=== PATIENT | female | born 1945 | race Caucasian/White ===

== ENCOUNTER → 2019-07-22 | Day surgery (SDC) | payer MEDICARE, MEDICAID ==
[~2019-07-22] MED LIST: AMLO10TA80 PO; ASPI-1497 PO; ATOR20TA65 PO; GLIM1TAB PO; HYDR12.54 PO; INSU300I SQ; LEVO50TA8 PO; LIDOCAINE HCL 1% 20ML VIAL (Pyxis) INJ ONE; LINA5TAB PO; LOSA25TA26 PO; SODIUM BICARBONATE 4% (2.4MEQ) 5ML VIAL IV ONE
== END | disposition home or self-care (01) ==
LOC: RADANGIO 10:58
PROVIDERS: ATTEND Podiatrist Foot & Ankle Surgery
DX: M86.8X7 Other osteomyelitis, ankle and foot (principal); Z79.82 Long term (current) use of aspirin; Z79.899 Other long term (current) drug therapy; Z82.49 Family history of ischemic heart disease and other diseases of the circulatory system; Z83.3 Family history of diabetes mellitus
CPT/HCPCS: 36573; C1725; J3490; 76937

== ENCOUNTER 2021-09-18 17:33 | Inpatient (IN) | payer MEDICARE, MEDICAID ==
[~2021-09-18] VITALS: Ht 160 cm; Wt 62.1 kg
[~2021-09-18 17:33] MED LIST changes: +LEVO250T43 MT; -LIDOCAINE HCL 1% 20ML VIAL (Pyxis) INJ ONE; -SODIUM BICARBONATE 4% (2.4MEQ) 5ML VIAL IV ONE
[2021-09-18 21:44] LABS: BASOPHILS % 0.6 % (0.0-2.0); EOSINOPHILS % 1.3 % (0.0-5.0); HEMATOCRIT. 27.8 % (36.0-48.0); HEMOGLOBIN. 9.3 g/dL (12.0-16.0); LYMPHOCYTES % 17.4 % (20.0-50.0); MEAN CORPUSCULAR HEMOGLOBIN 30.1 pg (28.0-32.0); MEAN CORPUSCULAR VOLUME 90.5 fL (81.0-99.0); MEAN PLATELET VOLUME 8.6 fl (7.4-10.4); MONOCYTES % 6.7 % (2.0-8.0); PLATELET 226 x1000/uL (130-400); RED BLOOD CELL COUNT 3.07 mill/uL (4.2-5.4); RED CELL DISTRIBUTION WIDTH 14.9 % (11.6-14.6)
[2021-09-18 21:50] LABS: CHLORIDE 114 mEq/L (98-107)
[2021-09-19] VITALS (7 sets, daily range): BP systolic 115–160; BP diastolic 42–65
[2021-09-19] MEDS ORDERED: DEXTROSE 50% WATER 50ML SYRINGE IV PRN (10:00)
[2021-09-19] MEDS ORDERED: CLONIDINE 0.1MG TABLET PO PRN (11:15)
[2021-09-19] MEDS ORDERED: ZOLPIDEM TARTRATE 5MG TABLET PO PRN (11:15)
[2021-09-19] MEDS ORDERED: MAGNESIUM/ALUMINUM HYDROXIDE/SIMETHICONE 30ML UDC PO PRN (11:15)
[2021-09-19] MEDS ORDERED: DIPHENHYDRAMINE 50MG/ML VIAL IV PRN (11:15)
[2021-09-19] MEDS ORDERED: ACETAMINOPHEN 325MG TABLET PO PRN ×2 (11:15)
[2021-09-19] MEDS ORDERED: ONDANSETRON HCL 4MG/2ML INJ IV PRN (11:15)
[2021-09-19] MEDS ORDERED: SODIUM POLYSTYRENE SULFONATE 15 G/60 ML BOT PO NR (11:30)
[2021-09-19] MEDS: BLOOD SUGAR DIAGNOSTIC STRIP TEST SCH ×3 (12:10→21:36)
[2021-09-19 12:37] LABS: CREATINE KINASE 203 IU/L (26-192)
[2021-09-19] MEDS: SODIUM CHLORIDE 0.9% INJ 3ML FLUSH IVF SCH ×2 (14:00→21:36)
[2021-09-19] MEDS: INSULIN LISPRO 100 UNITS/ML SUBCUT SCH ×3 (15:10→21:00)
[2021-09-19] MEDS: SODIUM CHLORIDE 0.45% 1,000 ML IV SCH (15:11)
[2021-09-20 04:00] VITALS: BP_SYST 143; BP_SYST 152; BP_DIAS 44; BP_DIAS 58
[2021-09-20] MEDS: SODIUM CHLORIDE 0.9% INJ 3ML FLUSH IVF SCH ×2 (05:17→13:44)
[2021-09-20] MEDS: BLOOD SUGAR DIAGNOSTIC STRIP TEST SCH ×2 (05:17→12:44)
[2021-09-20] MEDS: SODIUM CHLORIDE 0.45% 1,000 ML IV SCH (05:23)
[2021-09-20] MEDS: INSULIN LISPRO 100 UNITS/ML SUBCUT SCH ×2 (05:24→12:40)
[2021-09-20 08:00] VITALS: BP 150/55
[2021-09-20 12:00] VITALS: BP 133/42
[2021-09-20 15:38] VITALS: BP 133/42
== END 2021-09-20 16:10 | disposition home or self-care (01) | DRG 641 ==
LOC: ER 17:33 → 8WST 09-19 01:55 → EDBEDREQ 09-19 02:02 → ENRESERV 09-19 03:20 → ER 09-19 05:11
PROVIDERS: ADMIT Internal Medicine; ATTEND Internal Medicine
DX: E87.5 Hyperkalemia (principal); N17.9 Acute kidney failure, unspecified; N18.4 Chronic kidney disease, stage 4 (severe); I12.9 Hypertensive chronic kidney disease with stage 1 through stage 4 chronic kidney disease, or unspecified chronic kidney disease; E11.22 Type 2 diabetes mellitus with diabetic chronic kidney disease; E03.9 Hypothyroidism, unspecified; E78.00 Pure hypercholesterolemia, unspecified; E78.5 Hyperlipidemia, unspecified; I25.10 Atherosclerotic heart disease of native coronary artery without angina pectoris; I65.22 Occlusion and stenosis of left carotid artery; Z79.82 Long term (current) use of aspirin; Z79.4 Long term (current) use of insulin; Z90.49 Acquired absence of other specified parts of digestive tract
CPT/HCPCS: 36415; 76770; 80048; 80053; 82550; 82962; 83036; 85025; 93005; 99285; J1815

== ENCOUNTER 2024-01-30 11:08 | Inpatient (IN) | payer MEDICARE, MEDICAID ==
[2024-01-30] VITALS (16 sets, daily range): BP systolic 105–147; BP diastolic 10–107; PULSE 59–71; RESP 14–20; TEMP 36.418–36.44736; O2SAT 98–100
[~2024-01-30] VITALS: Ht 157.5 cm; Wt 30823.5 kg
[~2024-01-30 11:08] MED LIST changes: -GLIM1TAB PO; +GLIM1TAB55 PO; -LEVO250T43 MT; +LEVO250T74 MT
[2024-01-30 12:48] LABS: HEMATOCRIT. 23.6 % (36.0-48.0); MEAN CORPUSCULAR HEMOGLOBIN 31.6 pg (28.0-32.0); MEAN CORPUSCULAR HGB CONC 33.7 g/dL (31.0-37.0); MEAN CORPUSCULAR VOLUME 93.8 fL (81.0-99.0); MEAN PLATELET VOLUME 9.6 fl (7.4-10.4); PLATELET 200 x1000/uL (130-400); RED BLOOD CELL COUNT 2.52 mill/uL (4.2-5.4); RED CELL DISTRIBUTION WIDTH 15.1 % (11.6-14.6); WHITE BLOOD COUNT 8.5 x1000/uL (4.5-11.0)
[2024-01-30 12:51] LABS: DIFFERENTIAL COMMENT 1
[2024-01-30 12:55] LABS: CHLORIDE 100 mEq/L (98-107); SODIUM 127 mEq/L (136-145)
[2024-01-30 13:01] LABS: D-DIMER 5.83 mg/L FEU (<0.50); GLUCOSE 93 mg/dL (70-105); INR 1.2; PROTHROMBIN TIME 12.9 sec (9.6-11.0)
[2024-01-30 13:04] LABS: POTASSIUM 7.1 mEq/L (3.5-5.1)
[2024-01-30 13:05] LABS: CALCIUM 5.5 mg/dL (8.7-10.4); CARBON DIOXIDE < 10 mEq/L (21-32)
[2024-01-30 13:07] LABS: CREATININE 15.4 mg/dL (0.6-1.0); UREA NITROGEN BLOOD 147 mg/dL (9-23)
[2024-01-30 13:08] LABS: TROPONIN I HIGH SENSITIVITY 299 ng/L (3.0-34)
[2024-01-30] MEDS ORDERED: FUROSEMIDE 100MG/10ML VIAL IV ONE (13:15)
[2024-01-30] MEDS: DEXTROSE 50% WATER 50ML SYRINGE IV ONE (13:48)
[2024-01-30] MEDS: INSULIN REGULAR (HUMULIN R) 1000UNITS/10ML VIAL IV ONE (13:48)
[2024-01-30] MEDS: FUROSEMIDE 40MG/4ML VIAL IV NR (13:49)
[2024-01-30] MEDS: CALCIUM CHLORIDE 1,000 MG in DEXT 5% WATER 100 ML IV ONE (13:53)
[2024-01-30] MEDS ORDERED: LIDOCAINE HCL 1% 10 MG/ML 10ML VIAL ONE (14:14)
[2024-01-30] MEDS ORDERED: HEPARIN 1000 UNITS/ML 10ML ONE ×2 (14:15→14:17)
[2024-01-30 14:36] LABS: BG BASE EXCESS -23.2 mmol/L (-2.0-3.0); BG CARBOXYHEMOGLOBIN 0.3 % (0.5-1.5); BG DEOXYHEMOGLOBIN 1.6 % (0.0-5.0); BG FRACTION INSPIRED OXYGEN 36; BG METHEMOGLOBIN 0.3 % (0.5-1.5); BG OXYGEN SATURATION 98.4 % (94.0-98.0); BG OXYHEMOGLOBIN 97.8 % (94.0-98.0); BG PCO2 17.6 mmHg (32.0-45.0); BG PH 7.068 (7.350-7.450); BG PO2 151.4 mmHg (83.0-108.0); BG SAMPLE SITE RIGHT BRACHIAL; BG TOTAL HEMOGLOBIN 7.5 g/dL (12.0-16.0); BG VENT MODE NASAL CANNULA
[2024-01-30 15:01] LABS: ANISOCYTOSIS 1+; NUCLEATED RED BLOOD CELLS 4 /100 WBC; PLATELET ESTIMATE NORMAL
[2024-01-30 15:03] LABS: HEPATITIS B SURFACE ANTIGEN NEGATIVE (Negative)
[2024-01-30] MEDS: ALBUTEROL (0.083%) 2.5MG/3ML NEB HHN SCH (15:11)
[2024-01-30 15:23] LABS: HEPATITIS A AB IGM NEGATIVE (Negative)
[2024-01-30 15:24] LABS: HEPATITIS B CORE AB IGM NEGATIVE (Negative)
[2024-01-30 15:25] LABS: HEPATITIS C AB NON REACTIVE (Neg) (Negative)
[2024-01-30 16:28] LABS: TROPONIN I HIGH SENSITIVITY 264 ng/L (3.0-34)
[2024-01-30] MEDS ORDERED: MAGNESIUM/ALUMINUM HYDROXIDE/SIMETHICONE 30ML UDC PO PRN (17:00)
[2024-01-30] MEDS ORDERED: ACETAMINOPHEN 325MG TABLET PO PRN (17:00)
[2024-01-30] MEDS ORDERED: IPRATROPIUM/ALBUTEROL 0.5-3(2.5)MG/3ML NEB HHN PRN (17:00)
[2024-01-30] MEDS: BLOOD SUGAR DIAGNOSTIC STRIP TEST SCH (17:32)
[2024-01-30] MEDS: DEXTROSE 50% WATER 50ML SYRINGE IV PRN (17:44)
[2024-01-30 17:55] LABS: CREATINE KINASE 3772 IU/L (34-145)
[2024-01-30] MEDS: SODIUM BICARBONATE 100 MEQ in DEXTROSE 5% WATER 900 ML IV SCH (18:00)
[2024-01-30] MEDS: INSULIN LISPRO 100 UNITS/ML SUBCUT SCH (18:20)
[2024-01-30] MEDS: SODIUM CHLORIDE 0.9% 3ML FLUSH IVF SCH (21:47)
[2024-01-31] VITALS (82 sets, daily range): BP systolic 86–202; BP diastolic 43–162; PULSE 60–110; RESP 10–24; TEMP 36.6696–37.2252; O2SAT 94–100
[2024-01-31] MEDS: CLONIDINE 0.1MG TABLET PO PRN (01:55)
[2024-01-31 05:40] LABS: CLARITY URINE TURBID (CLEAR); COLOR URINE YELLOW (YELLOW); GLUCOSE URINE TRACE (NEGATIVE); KETONES URINE NEGATIVE (NEGATIVE); LEUKOCYTE ESTERASE URINE 2+ (NEGATIVE); NITRITE URINE NEGATIVE (NEGATIVE); OCCULT BLOOD URINE 2+ (NEGATIVE); PH URINE 6.5 (4.5-8.0); PROTEIN URINE 4+ (NEGATIVE); SPECIFIC GRAVITY URINE 1.013 (1.005-1.030); UROBILINOGEN URINE 0.2 E.U./dL (0.2-1.0)
[2024-01-31 07:22] LABS: BACTERIA URINE TRACE; SQUAMOUS EPITHELIAL CELL URINE 1+ /lpf (RARE/1+)
[2024-01-31 07:27] LABS: HEMATOCRIT. 21.3 % (36.0-48.0); HEMOGLOBIN. 7.3 g/dL (12.0-16.0); MEAN CORPUSCULAR HEMOGLOBIN 30.7 pg (28.0-32.0); MEAN CORPUSCULAR HGB CONC 34.1 g/dL (31.0-37.0); MEAN PLATELET VOLUME 9.4 fl (7.4-10.4); PLATELET 178 x1000/uL (130-400); RED BLOOD CELL COUNT 2.36 mill/uL (4.2-5.4); RED CELL DISTRIBUTION WIDTH 14.4 % (11.6-14.6)
[2024-01-31 07:31] LABS: DIFFERENTIAL COMMENT 1
[2024-01-31 07:37] LABS: CALCIUM 7.2 mg/dL (8.7-10.4)
[2024-01-31 07:45] LABS: PHOSPHORUS 7.1 mg/dL (2.5-4.9)
[2024-01-31 07:46] LABS: THYROID STIMULATING HORMONE 11.18 uIU/mL (0.55-4.78)
[2024-01-31] MEDS: LEVOTHYROXINE SODIUM 50MCG TABLET PO SCH (08:00)
[2024-01-31] MEDS: HYDRALAZINE HCL 25MG TABLET PO SCH (08:00)
[2024-01-31 08:21] LABS: CREATININE 7.8 mg/dL (0.6-1.0); POTASSIUM 2.9 mEq/L (3.5-5.1)
[2024-01-31] MEDS: AMLODIPINE 10MG TABLET PO SCH (09:00)
[2024-01-31] MEDS: FAMOTIDINE 20MG/2ML VIAL IV SCH (09:19)
[2024-01-31] MEDS: HYDRALAZINE 20MG/ML VIAL IV PRN (10:31)
[2024-01-31] MEDS: ONDANSETRON HCL 4MG/2ML INJ IV PRN (12:51)
[2024-01-31] MEDS ORDERED: POTASSIUM CHLORIDE 20MEQ/PACKET PO NR (13:00)
[2024-01-31] MEDS: CALCIUM ACETATE 667MG CAPSULE PO SCH (14:30)
[2024-01-31] MEDS: KCL 20MEQ/100ML PREMIX 100 ML IV SCH (14:47)
[2024-01-31] MEDS: EPOETIN ALFA-EPBX 4,000 UNIT/ML VIAL SUBCUT SCH (21:10)
[2024-01-31] MEDS: DIPHENHYDRAMINE 50MG/ML VIAL IV PRN (21:11)
[2024-01-31 22:02] LABS: POTASSIUM 4.4 mEq/L (3.5-5.1)
[2024-02-01] VITALS (65 sets, daily range): BP systolic 93–172; BP diastolic 40–107; PULSE 57–81; RESP 12–33; TEMP 36.3918–37.28076; O2SAT 61–100
[2024-02-01 05:01] LABS: PLATELET ESTIMATE NORMAL
[2024-02-01 06:12] LABS: BASOPHILS % 0.5 % (0.0-2.0); EOSINOPHILS % 0.7 % (0.0-5.0); MEAN CORPUSCULAR HEMOGLOBIN 31.9 pg (28.0-32.0); MEAN CORPUSCULAR HGB CONC 35.2 g/dL (31.0-37.0); MEAN CORPUSCULAR VOLUME 90.8 fL (81.0-99.0); MEAN PLATELET VOLUME 9.6 fl (7.4-10.4); MONOCYTES % 13.5 % (2.0-8.0); NEUTROPHILS % 69.3 % (40.0-76.0); PLATELET 134 x1000/uL (130-400); RED BLOOD CELL COUNT 1.86 mill/uL (4.2-5.4); RED CELL DISTRIBUTION WIDTH 14.2 % (11.6-14.6); WHITE BLOOD COUNT 6.8 x1000/uL (4.5-11.0)
[2024-02-01 06:20] LABS: POTASSIUM 3.9 mEq/L (3.5-5.1)
[2024-02-01 06:48] LABS: DIFFERENTIAL COMMENT 1; HEMATOCRIT. 16.9 % (36.0-48.0)
[2024-02-01 06:55] LABS: CREATININE 9.2 mg/dL (0.6-1.0)
[2024-02-01] MEDS: LEVOTHYROXINE SODIUM 100MCG TABLET PO SCH (09:47)
[2024-02-01] MEDS: ACETAMINOPHEN 325MG TABLET PO PRN (13:21)
[2024-02-01 22:43] LABS: HEMATOCRIT 24.8 % (36.0-48.0); HEMOGLOBIN 8.3 g/dL (12.0-16.0)
[2024-02-02] VITALS (7 sets, daily range): BP systolic 126–190; BP diastolic 41–83; PULSE 61–81; RESP 18–22; TEMP 36.05844–36.61404; O2SAT 96–98
[2024-02-02 08:42] LABS: POTASSIUM 3.7 mEq/L (3.5-5.1)
[2024-02-02 09:07] LABS: CREATININE 7.2 mg/dL (0.6-1.0)
[2024-02-03] VITALS: BP 154/54; PULSE 64; RESP 20; TEMP 36.28068; O2SAT 97
[2024-02-03 04:00] VITALS: BP 126/41; PULSE 66; RESP 18; TEMP 36.114; O2SAT 97
[2024-02-03 07:24] LABS: POTASSIUM 3.5 mEq/L (3.5-5.1)
[2024-02-03 07:34] LABS: BASOPHILS % 0.6 % (0.0-2.0); EOSINOPHILS % 2.3 % (0.0-5.0); HEMATOCRIT. 24.9 % (36.0-48.0); HEMOGLOBIN. 8.5 g/dL (12.0-16.0); LYMPHOCYTES % 8.3 % (20.0-50.0); MEAN CORPUSCULAR HEMOGLOBIN 30.5 pg (28.0-32.0); MEAN CORPUSCULAR VOLUME 89.8 fL (81.0-99.0); MEAN PLATELET VOLUME 9.6 fl (7.4-10.4); MONOCYTES % 9.6 % (2.0-8.0); NEUTROPHILS % 79.2 % (40.0-76.0); PLATELET 163 x1000/uL (130-400); RED BLOOD CELL COUNT 2.77 mill/uL (4.2-5.4); RED CELL DISTRIBUTION WIDTH 16.6 % (11.6-14.6)
[2024-02-03 08:00] VITALS: BP 155/58; PULSE 66; RESP 18; TEMP 36.3918; O2SAT 95
[2024-02-03 08:11] LABS: CREATININE 7.9 mg/dL (0.6-1.0)
[2024-02-03 08:15] LABS: CALCIUM 5.7 mg/dL (8.7-10.4)
[2024-02-03 12:00] VITALS: BP 159/61; PULSE 81; RESP 18; TEMP 36.61404; O2SAT 100
[2024-02-03] MEDS ORDERED: CALCIUM GLUCONATE 1,000 MG in DEXT 5% WATER 90 ML IV ONE (12:45)
[2024-02-03] MEDS: CALCIUM GLUCONATE 1GM PREMIX 50ML IV SCH (14:46)
[2024-02-03 16:00] VITALS: BP 147/55; PULSE 65; RESP 18; TEMP 36.72516; O2SAT 95
[2024-02-03 20:00] VITALS: BP 132/48; PULSE 75; RESP 18; TEMP 36.50292; O2SAT 98
[2024-02-04] VITALS (18 sets, daily range): BP systolic 121–165; BP diastolic 39–80; PULSE 65–70; RESP 14–20; TEMP 36.114–36.89184; O2SAT 89–100
[2024-02-04] MEDS ORDERED: LIDOCAINE HCL 1% 10 MG/ML 10ML VIAL ONE (07:57)
[2024-02-04] MEDS: CEFAZOLIN 1000MG PREMIX 50 ML IV NR (08:45)
[2024-02-05] VITALS: BP 134/51; PULSE 73; TEMP 36.78072; O2SAT 99
[2024-02-05 04:00] VITALS: BP 137/46; PULSE 63; RESP 18; TEMP 36.78072; O2SAT 97
[2024-02-05 12:00] VITALS: BP 127/81; PULSE 72; RESP 18; TEMP 35.89176; O2SAT 97
[2024-02-05 16:00] VITALS: BP 145/73; PULSE 73; RESP 18; TEMP 36.3918; O2SAT 98
[2024-02-05 20:00] VITALS: BP 175/66; PULSE 76; RESP 19; TEMP 36.28068; O2SAT 98
[2024-02-06] VITALS (14 sets, daily range): BP systolic 127–183; BP diastolic 53–88; PULSE 69–79; RESP 16–20; TEMP 36.16956–36.78072; O2SAT 94–99
[2024-02-07] VITALS: BP 139/42; PULSE 70; RESP 19; TEMP 36.22512; O2SAT 98
[2024-02-07 04:00] VITALS: BP 151/49; PULSE 76; RESP 20; TEMP 36.6696; O2SAT 97
[2024-02-07 08:00] VITALS: BP 156/50; PULSE 82; RESP 18; TEMP 36.61404; O2SAT 98
[2024-02-07 12:00] VITALS: BP 175/60; PULSE 75; RESP 18; TEMP 36.55848; O2SAT 98
[2024-02-07 12:11] LABS: BASOPHILS % 0.6 % (0.0-2.0); EOSINOPHILS % 2.1 % (0.0-5.0); HEMATOCRIT. 31.4 % (36.0-48.0); HEMOGLOBIN. 10.2 g/dL (12.0-16.0); LYMPHOCYTES % 10.5 % (20.0-50.0); MEAN CORPUSCULAR HEMOGLOBIN 29.8 pg (28.0-32.0); MEAN CORPUSCULAR HGB CONC 32.4 g/dL (31.0-37.0); MEAN CORPUSCULAR VOLUME 91.8 fL (81.0-99.0); MEAN PLATELET VOLUME 8.7 fl (7.4-10.4); MONOCYTES % 10.8 % (2.0-8.0); PLATELET 174 x1000/uL (130-400); RED BLOOD CELL COUNT 3.42 mill/uL (4.2-5.4); RED CELL DISTRIBUTION WIDTH 16.3 % (11.6-14.6); WHITE BLOOD COUNT 9.4 x1000/uL (4.5-11.0)
[2024-02-07 12:15] LABS: POTASSIUM 3.3 mEq/L (3.5-5.1)
[2024-02-07 12:17] LABS: CALCIUM 6.5 mg/dL (8.7-10.4)
[2024-02-07 12:45] LABS: CREATININE 6.2 mg/dL (0.6-1.0)
[2024-02-07 15:46] VITALS: BP 110/78; PULSE 78; TEMP 98.6; O2SAT 99
[2024-02-07 16:00] VITALS: BP 128/89; PULSE 78; RESP 18; TEMP 37.00296; O2SAT 98
== END 2024-02-07 18:25 | disposition home or self-care (01) | DRG 674 ==
LOC: ER 11:26 → EDBEDREQTM 14:03 → EDBEDREQ 14:03 → EDBEDREQSVC 14:03 → EDBEDREQ 15:29 → CVICU 20:01 → 7WST 02-01 23:43
PROVIDERS: ADMIT Internal Medicine; ATTEND Internal Medicine
PROC: B5181ZA Fluoroscopy of Superior Vena Cava using Low Osmolar Contrast, Guidance (ICD-10-PCS; 2024-01-31)
PROC: 5A1D70Z Performance of Urinary Filtration, Intermittent, Less than 6 Hours Per Day (ICD-10-PCS; 2024-01-31)
PROC: 02HV33Z Insertion of Infusion Device into Superior Vena Cava, Percutaneous Approach (ICD-10-PCS; 2024-01-31)
PROC: B548ZZA Ultrasonography of Superior Vena Cava, Guidance (ICD-10-PCS; 2024-01-31)
PROC: 5A1D70Z Performance of Urinary Filtration, Intermittent, Less than 6 Hours Per Day (ICD-10-PCS; 2024-02-01)
PROC: 30233N1 Transfusion of Nonautologous Red Blood Cells into Peripheral Vein, Percutaneous Approach (ICD-10-PCS; 2024-02-01)
PROC: 0JH63XZ Insertion of Tunneled Vascular Access Device into Chest Subcutaneous Tissue and Fascia, Percutaneous Approach (ICD-10-PCS; principal; 2024-02-04)
PROC: 02HV33Z Insertion of Infusion Device into Superior Vena Cava, Percutaneous Approach (ICD-10-PCS; 2024-02-04)
PROC: B5181ZA Fluoroscopy of Superior Vena Cava using Low Osmolar Contrast, Guidance (ICD-10-PCS; 2024-02-04)
PROC: 5A1D70Z Performance of Urinary Filtration, Intermittent, Less than 6 Hours Per Day (ICD-10-PCS; 2024-02-04)
PROC: B548ZZA Ultrasonography of Superior Vena Cava, Guidance (ICD-10-PCS; 2024-02-04)
PROC: 5A1D70Z Performance of Urinary Filtration, Intermittent, Less than 6 Hours Per Day (ICD-10-PCS; 2024-02-06)
DX: N17.9 Acute kidney failure, unspecified (principal); E87.4 Mixed disorder of acid-base balance; M62.82 Rhabdomyolysis; I12.0 Hypertensive chronic kidney disease with stage 5 chronic kidney disease or end stage renal disease; E87.5 Hyperkalemia; N18.6 End stage renal disease; Z20.822 Contact with and (suspected) exposure to COVID-19; E87.70 Fluid overload, unspecified; D63.1 Anemia in chronic kidney disease; E03.9 Hypothyroidism, unspecified; E11.22 Type 2 diabetes mellitus with diabetic chronic kidney disease; E78.00 Pure hypercholesterolemia, unspecified; E83.51 Hypocalcemia; I65.22 Occlusion and stenosis of left carotid artery; R79.89 Other specified abnormal findings of blood chemistry; D64.9 Anemia, unspecified; Z90.49 Acquired absence of other specified parts of digestive tract
CPT/HCPCS: 36415; 36556; 36558; 36600; 71045; 76770; 76937; 77001; 80048; 81003; 82375; 82550; 82805; 82962; 83036; 83880; 84100; 84132; 84443; 84484; 85014; 85018; 85025; 85379; 86705; 86706; 86709; 86850; 86900; 86920; 87340; 87426; 90935; 92610; 93005; 93970; 94640; 97116; 97162; 97166; 99291; C1750; C1752; C1769; J0360; J0610; J0690; J0885; J1200; J1642; J1644; J1815; J1940; J2405; J3480; J3490; J7060; J7070; P9016

== ENCOUNTER → 2024-05-21 | Day surgery (SDC) | payer MEDICARE, MEDICAID ==
[~2024-05-21] VITALS: Ht 152.4 cm; Wt 54.4 kg
[~2024-05-21] MED LIST changes: +BACITRACIN 14GM TUBE TOP ONE; +BUPIVACAINE HCL/PF 0.5% (5MG/ML) 10ML ONE; +CALC667C PO; +CEFAZOLIN SODIUM 1000MG/VIAL ONE; +CHOL400D7 PO; +FOLI-43 PO; +GLYCOPYRROLATE 0.2 MG/ML 2ML VIAL IV PRN; +HEPARIN SODIUM 1,000 UNIT/1ML VIAL IV ONE; +HYDR50TA40 PO; +HYDRALAZINE 20MG/ML VIAL IV PRN; +HYDROMORPHONE HCL/PF 1MG/ML INJ IV PRN; +LABETALOL 5MG/ML 4ML INJ IV PRN; +LIDOCAINE HCL 1% 10 MG/ML 10ML VIAL ONE; +NEBI10TA10 PO; +OMEG100016 PO; +ONDANSETRON HCL 4MG/2ML INJ IV PRN; +POLYMYXIN B SULFATE 500000 UNITS/VIAL ONE; +PROPOFOL 200MG/20ML VIAL IV ONE; +SODIUM CHLORIDE 0.9% 500 ML IV SCH; +THROMBIN (BOVINE) 5000 UNITS/VIAL TOP ONE
[2024-05-21 09:54] LABS: BASOPHILS % 1.1 % (0.0-2.0); EOSINOPHILS % 3.4 % (0.0-5.0); HEMATOCRIT. 36.1 % (36.0-48.0); LYMPHOCYTES % 27.8 % (20.0-50.0); MEAN CORPUSCULAR HEMOGLOBIN 31.5 pg (28.0-32.0); MEAN CORPUSCULAR HGB CONC 33.1 g/dL (31.0-37.0); MEAN CORPUSCULAR VOLUME 95.3 fL (81.0-99.0); MEAN PLATELET VOLUME 8.2 fl (7.4-10.4); NEUTROPHILS % 58.7 % (40.0-76.0); PLATELET 216 x1000/uL (130-400); RED BLOOD CELL COUNT 3.79 mill/uL (4.2-5.4); RED CELL DISTRIBUTION WIDTH 15.8 % (11.6-14.6); WHITE BLOOD COUNT 6.6 x1000/uL (4.5-11.0)
[2024-05-21 09:58] LABS: CALCIUM 10.3 mg/dL (8.7-10.4)
[2024-05-21 10:04] LABS: PARTIAL THROMBOPLASTIN TIME 26.3 sec (23.4-31.0); PROTHROMBIN TIME 10.7 sec (9.6-11.0)
[2024-05-21] MEDS: SODIUM CHLORIDE 0.9% 500 ML IV ONE (11:14)
== END | disposition home or self-care (01) ==
LOC: OR 09:05
PROVIDERS: ATTEND Surgery Vascular Surgery
DX: I12.0 Hypertensive chronic kidney disease with stage 5 chronic kidney disease or end stage renal disease (principal); N18.6 End stage renal disease; E11.22 Type 2 diabetes mellitus with diabetic chronic kidney disease; E78.00 Pure hypercholesterolemia, unspecified; Z99.2 Dependence on renal dialysis; Z79.82 Long term (current) use of aspirin; Z79.4 Long term (current) use of insulin; Z79.899 Other long term (current) drug therapy; Z98.890 Other specified postprocedural states
CPT/HCPCS: 36821; 80048; 82962; 85025; 85610; 85730; 36415; 93005; J0665; J0690; J1644; J2003; J3490 ×2; J2704

== ENCOUNTER → 2024-07-16 | Day surgery (SDC) | payer MEDICARE, MEDICAID ==
[~2024-07-16] VITALS: Ht 152.4 cm; Wt 54.4 kg
[~2024-07-16] MED LIST changes: -CEFAZOLIN SODIUM 1000MG/VIAL ONE; +CHOL200026 PO; -CHOL400D7 PO; +ETOMIDATE 2MG/ML 10ML VIAL IV ONE; +FENTANYL CITRATE/PF 50MCG/ML 2ML VIAL ONE; -GLYCOPYRROLATE 0.2 MG/ML 2ML VIAL IV PRN; -HYDR12.54 PO; -HYDRALAZINE 20MG/ML VIAL IV PRN; -HYDROMORPHONE HCL/PF 1MG/ML INJ IV PRN; +LEVO100T9 PO; -LEVO250T74 MT; -LEVO50TA8 PO; -LINA5TAB PO; -LOSA25TA26 PO; +MEPERIDINE HCL/PF 25MG/ML CPJ IV PRN; +MIDAZOLAM HCL 2 MG/2 ML VIAL ONE; +NALOXONE HCL 0.4MG/ML 1ML VIAL ONE; -ONDANSETRON HCL 4MG/2ML INJ IV PRN; +ROPIVACAINE HCL 1% 20 ML VIAL EPI ONE; -SODIUM CHLORIDE 0.9% 500 ML IV SCH
[2024-07-16 09:45] LABS: BASOPHILS % 1.1 % (0.0-2.0); EOSINOPHILS % 3.4 % (0.0-5.0); HEMATOCRIT. 32.3 % (36.0-48.0); HEMOGLOBIN. 10.6 g/dL (12.0-16.0); LYMPHOCYTES % 25.8 % (20.0-50.0); MEAN CORPUSCULAR HEMOGLOBIN 31.8 pg (28.0-32.0); MEAN CORPUSCULAR HGB CONC 32.9 g/dL (31.0-37.0); MEAN CORPUSCULAR VOLUME 96.7 fL (81.0-99.0); MEAN PLATELET VOLUME 8.8 fl (7.4-10.4); MONOCYTES % 10.3 % (2.0-8.0); NEUTROPHILS % 59.4 % (40.0-76.0); PLATELET 198 x1000/uL (130-400); RED BLOOD CELL COUNT 3.34 mill/uL (4.2-5.4); RED CELL DISTRIBUTION WIDTH 15.1 % (11.6-14.6); WHITE BLOOD COUNT 5.3 x1000/uL (4.5-11.0)
[2024-07-16 09:54] LABS: PARTIAL THROMBOPLASTIN TIME 24.1 sec (23.4-31.0); PROTHROMBIN TIME 10.6 sec (9.6-11.0)
[2024-07-16 09:55] LABS: POTASSIUM 4.6 mEq/L (3.5-5.1)
[2024-07-16 09:56] LABS: CALCIUM 8.7 mg/dL (8.7-10.4)
[2024-07-16 10:01] LABS: CREATININE 4.4 mg/dL (0.6-1.0)
[2024-07-16] MEDS: SODIUM CHLORIDE 0.9% 500 ML IV ONE (10:13)
[2024-07-16] MEDS: HYDRALAZINE 20MG/ML VIAL IV NR (13:18)
[2024-07-16] MEDS: HYDROMORPHONE HCL/PF 1MG/ML INJ IV PRN (13:27)
[2024-07-16 13:56] VITALS: BP 111/50; PULSE 75; RESP 15
[2024-07-16] MEDS: ONDANSETRON HCL 4MG/2ML INJ IV PRN (14:39)
[2024-07-16] MEDS: DEXAMETHASONE 4MG/ML 1ML VIAL IV NR (16:32)
[2024-07-16] MEDS: METOCLOPRAMIDE HCL 10MG/2ML VIAL IV NR (16:32)
== END | disposition home or self-care (01) ==
LOC: OR 09:13
PROVIDERS: ATTEND Surgery Vascular Surgery
DX: I77.0 Arteriovenous fistula, acquired (principal); I12.0 Hypertensive chronic kidney disease with stage 5 chronic kidney disease or end stage renal disease; N18.6 End stage renal disease; E11.22 Type 2 diabetes mellitus with diabetic chronic kidney disease; E78.5 Hyperlipidemia, unspecified; Z79.82 Long term (current) use of aspirin; Z79.84 Long term (current) use of oral hypoglycemic drugs; Z79.899 Other long term (current) drug therapy; Z98.890 Other specified postprocedural states; Z82.49 Family history of ischemic heart disease and other diseases of the circulatory system; Z83.3 Family history of diabetes mellitus
CPT/HCPCS: 36830; 80048; 82962; 85025; 85610; 85730; 36415; 93005; C1768; J3010; J0665; J1100; J3490 ×3; J1644; J0360; J2003; J2765; J2250; J2310; J2405; J2704; J2795; J1171

== ENCOUNTER 2024-11-28 11:23 | Inpatient (IN) | payer MEDICARE, MEDICAID ==
[2024-11-25] MEDS: INSULIN LISPRO 100 UNITS/ML SUBCUT SCH (21:00)
[2024-11-25] MEDS: BLOOD SUGAR DIAGNOSTIC STRIP TEST SCH (21:00)
[~2024-11-28] VITALS: Ht 152.4 cm; Wt 60.3 kg
[~2024-11-28 11:23] MED LIST changes: -BACITRACIN 14GM TUBE TOP ONE; -BUPIVACAINE HCL/PF 0.5% (5MG/ML) 10ML ONE; -ETOMIDATE 2MG/ML 10ML VIAL IV ONE; -FENTANYL CITRATE/PF 50MCG/ML 2ML VIAL ONE; -HEPARIN SODIUM 1,000 UNIT/1ML VIAL IV ONE; -LABETALOL 5MG/ML 4ML INJ IV PRN; -LIDOCAINE HCL 1% 10 MG/ML 10ML VIAL ONE; -MEPERIDINE HCL/PF 25MG/ML CPJ IV PRN; -MIDAZOLAM HCL 2 MG/2 ML VIAL ONE; -NALOXONE HCL 0.4MG/ML 1ML VIAL ONE; -POLYMYXIN B SULFATE 500000 UNITS/VIAL ONE; -PROPOFOL 200MG/20ML VIAL IV ONE; -ROPIVACAINE HCL 1% 20 ML VIAL EPI ONE; -THROMBIN (BOVINE) 5000 UNITS/VIAL TOP ONE
[2024-11-28 12:16] LABS: HEMATOCRIT. 44.0 % (36.0-48.0); HEMOGLOBIN. 13.9 g/dL (12.0-16.0); MEAN PLATELET VOLUME 9.4 fl (7.4-10.4); PLATELET 90 x1000/uL (130-400); RED BLOOD CELL COUNT 4.01 mill/uL (4.2-5.4); RED CELL DISTRIBUTION WIDTH 20.7 % (11.6-14.6)
[2024-11-28 12:23] LABS: UREA NITROGEN BLOOD 72 mg/dL (9-23)
[2024-11-28 12:25] LABS: ASPARTATE AMINOTRANSFERASE 36 IU/L (<34); BILIRUBIN DIRECT 1.1 mg/dL (<=3.0)
[2024-11-28 12:26] LABS: BILIRUBIN TOTAL 1.9 mg/dL (0.1-1.0); PROTEIN TOTAL 6.6 g/dL (6.0-8.3)
[2024-11-28 12:35] LABS: CREATININE 9.4 mg/dL (0.6-1.0); PHOSPHORUS 11.1 mg/dL (2.5-4.9)
[2024-11-28] MEDS ORDERED: SODIUM BICARBONATE 8.4% 50MEQ/50ML VIAL IV ONE (12:45)
[2024-11-28] MEDS ORDERED: DEXTROSE 50% WATER 50ML SYRINGE IV ONE (12:45)
[2024-11-28] MEDS ORDERED: ALBUTEROL (0.5%) 2.5MG/0.5ML NEB HHN ONE (12:45)
[2024-11-28] MEDS ORDERED: SODIUM BICARBONATE 8.4% 50MEQ/50ML VIAL IV NR (13:00)
[2024-11-28 13:16] LABS: BAND% 18.0 % (1.0-6.0); LYMPHOCYTES % MANUAL 3.0 % (20.0-60.0); MONOCYTES % MANUAL 2.0 % (2.0-8.0); NEUTROPHILS % MANUAL 77.0 % (45.0-75.0)
[2024-11-28 13:17] LABS: PLATELET ESTIMATE DECREASED
[2024-11-28] MEDS: CALCIUM GLUCONATE 100MG/ML 10ML VIAL IV ONE (13:24)
[2024-11-28] MEDS: SODIUM BICARBONATE 8.4% 50MEQ/50ML SYR IV NR (13:30)
[2024-11-28] MEDS: INSULIN REGULAR (HUMULIN R) 1000UNITS/10ML VIAL IV ONE (13:30)
[2024-11-28] MEDS: DEXTROSE 50% WATER 50ML SYRINGE IV NR (13:30)
[2024-11-28 14:02] VITALS: PULSE 91; RESP 18; O2SAT 100
[2024-11-28] MEDS: ALBUTEROL (0.5%) 2.5MG/0.5ML NEB HHN NR (14:02)
[2024-11-28 14:15] LABS: HEPATITIS A AB IGM NEGATIVE (Negative)
[2024-11-28 14:16] LABS: HEPATITIS B CORE AB IGM NEGATIVE (Negative); HEPATITIS C AB NON REACTIVE (Neg) (Negative)
[2024-11-28 16:00] VITALS: BP 132/74; PULSE 75; RESP 18; TEMP 36.7; O2SAT 98
[2024-11-28] MEDS ORDERED: GUAIFENESIN 200MG/10ML SUGAR FREE UDC PO PRN (16:45)
[2024-11-28] MEDS ORDERED: ACETAMINOPHEN 325MG TABLET PO PRN ×2 (16:45)
[2024-11-28] MEDS ORDERED: DIPHENHYDRAMINE 50MG/ML VIAL IV PRN (16:45)
[2024-11-28] MEDS ORDERED: ZOLPIDEM TARTRATE 5MG TABLET PO PRN (16:45)
[2024-11-28] MEDS ORDERED: ONDANSETRON HCL 4MG/2ML INJ IV PRN (16:45)
[2024-11-28] MEDS ORDERED: CLONIDINE 0.1MG TABLET PO PRN (16:45)
[2024-11-28 17:29] VITALS: BP 136/75; PULSE 80; RESP 18; TEMP 36.696
[2024-11-28] MEDS: CALCIUM ACETATE 667MG CAPSULE PO SCH (19:18)
[2024-11-28 20:00] VITALS: BP 135/77; PULSE 91; RESP 18; TEMP 36.6; O2SAT 96
[2024-11-28] MEDS: AMLODIPINE 5MG TABLET PO SCH (21:00)
[2024-11-28] MEDS: HYDRALAZINE HCL 50MG TABLET PO SCH (21:53)
[2024-11-28] MEDS: ATORVASTATIN CALCIUM 20MG TABLET PO SCH (21:54)
[2024-11-28] MEDS: SODIUM CHLORIDE 0.9% 3ML FLUSH IVF SCH (22:01)
[2024-11-29] VITALS (14 sets, daily range): BP systolic 95–125; BP diastolic 53–82; PULSE 70–118; RESP 18–20; TEMP 36.2–36.9474; O2SAT 96–98
[2024-11-29 06:56] LABS: UREA NITROGEN BLOOD 82.0 mg/dL (9-23)
[2024-11-29 07:06] LABS: CREATININE 9.6 mg/dL (0.6-1.0)
[2024-11-29] MEDS ORDERED: LIDOCAINE HCL 1% 10 MG/ML 10ML VIAL ONE (09:22)
[2024-11-29] MEDS: FOLIC ACID/VITAMIN B COMP W-C TABLET PO SCH (10:01)
[2024-11-29] MEDS: GLIMEPIRIDE 1MG TABLET PO SCH (10:01)
[2024-11-29] MEDS: LEVOTHYROXINE SODIUM 100MCG TABLET PO SCH (10:01)
[2024-11-29 16:37] LABS: INR 1.3
[2024-11-29] MEDS: INSULIN GLARGINE 100 UNITS/ML SUBCUT SCH (21:57)
[2024-11-30 03:59] VITALS: BP 105/64; PULSE 75; RESP 18; TEMP 36.6; O2SAT 96
[2024-11-30 06:25] LABS: UREA NITROGEN BLOOD 49.0 mg/dL (9-23)
[2024-11-30 06:28] LABS: HEMATOCRIT. 37.2 % (36.0-48.0); HEMOGLOBIN. 12.0 g/dL (12.0-16.0); MEAN PLATELET VOLUME 10.6 fl (7.4-10.4); PLATELET 76 x1000/uL (130-400); RED BLOOD CELL COUNT 3.45 mill/uL (4.2-5.4); RED CELL DISTRIBUTION WIDTH 20.3 % (11.6-14.6)
[2024-11-30 06:34] LABS: CREATININE 6.5 mg/dL (0.6-1.0)
[2024-11-30] MEDS: DEXTROSE 50% WATER 50ML SYRINGE IV PRN (06:42)
[2024-11-30 08:00] VITALS: BP 108/63; PULSE 76; RESP 18; TEMP 36.1; O2SAT 97
[2024-11-30 11:03] LABS: LYMPHOCYTES % MANUAL 2.0 % (20.0-60.0); MONOCYTES % MANUAL 6.0 % (2.0-8.0); NEUTROPHILS % MANUAL 92.0 % (45.0-75.0)
[2024-11-30 11:05] LABS: PLATELET ESTIMATE DECREASED
[2024-11-30 12:00] VITALS: BP 106/63; PULSE 83; RESP 18; TEMP 36.3; O2SAT 96
[2024-11-30 16:00] VITALS: BP 109/61; PULSE 79; RESP 18; TEMP 36.1; O2SAT 98
[2024-11-30 20:00] VITALS: BP 111/57; PULSE 87; RESP 18; TEMP 36.5; O2SAT 97
[2024-12-01] VITALS (16 sets, daily range): BP systolic 98–130; BP diastolic 50–70; PULSE 69–89; RESP 1–20; TEMP 36–36.6; O2SAT 98–100
[2024-12-01] MEDS: DEXTROSE 5% WATER 1,000 ML IV SCH
[2024-12-01 06:12] LABS: UREA NITROGEN BLOOD 56.0 mg/dL (9-23)
[2024-12-01 06:31] LABS: PLATELET 62 x1000/uL (130-400); RED BLOOD CELL COUNT 3.38 mill/uL (4.2-5.4); RED CELL DISTRIBUTION WIDTH 20.5 % (11.6-14.6)
[2024-12-01 06:38] LABS: CREATININE 7.1 mg/dL (0.6-1.0)
[2024-12-01] MEDS ORDERED: ALTEPLASE 2MG/VIAL ITC SCH (06:45)
[2024-12-01] MEDS ORDERED: CEFAZOLIN 1000MG PREMIX 50 ML IV ONE (07:50)
[2024-12-01] MEDS ORDERED: FENTANYL CITRATE/PF 50MCG/ML 2ML VIAL ONE (07:51)
[2024-12-01] MEDS ORDERED: LIDOCAINE HCL 1% 10 MG/ML 10ML VIAL ONE (07:51)
[2024-12-01] MEDS ORDERED: IOHEXOL-300 100 ML BOTTLE ONE ×2 (08:32→09:11)
[2024-12-01] MEDS: CEFAZOLIN 1000MG PREMIX 50 ML IV ONE (08:40)
[2024-12-01] MEDS: FENTANYL CITRATE/PF 50MCG/ML 2ML VIAL IV ONE (08:40)
== END 2024-12-01 19:13 | disposition home or self-care (01) | DRG 252 ==
LOC: ER 11:23 → 7WST 13:18 → EDBEDREQTM 13:21 → EDBEDREQ 13:21 → ENRESERV 13:35
PROVIDERS: ADMIT Internal Medicine; ATTEND Internal Medicine
PROC: 5A1D70Z Performance of Urinary Filtration, Intermittent, Less than 6 Hours Per Day (ICD-10-PCS; principal; 2024-11-29)
PROC: 02HV33Z Insertion of Infusion Device into Superior Vena Cava, Percutaneous Approach (ICD-10-PCS; 2024-11-29)
PROC: B548ZZA Ultrasonography of Superior Vena Cava, Guidance (ICD-10-PCS; 2024-11-29)
PROC: 037Y3ZZ Dilation of Upper Artery, Percutaneous Approach (ICD-10-PCS; 2024-11-30)
PROC: 3E03317 Introduction of Other Thrombolytic into Peripheral Vein, Percutaneous Approach (ICD-10-PCS; 2024-11-30)
PROC: B5181ZZ Fluoroscopy of Superior Vena Cava using Low Osmolar Contrast (ICD-10-PCS; 2024-11-30)
PROC: B51N1ZZ Fluoroscopy of Left Upper Extremity Veins using Low Osmolar Contrast (ICD-10-PCS; 2024-11-30)
PROC: 5A1D70Z Performance of Urinary Filtration, Intermittent, Less than 6 Hours Per Day (ICD-10-PCS; 2024-12-01)
DX: T82.868A Thrombosis due to vascular prosthetic devices, implants and grafts, initial encounter (principal); N18.6 End stage renal disease; I12.0 Hypertensive chronic kidney disease with stage 5 chronic kidney disease or end stage renal disease; E87.1 Hypo-osmolality and hyponatremia; E87.20 Acidosis, unspecified; E11.22 Type 2 diabetes mellitus with diabetic chronic kidney disease; E87.5 Hyperkalemia; E03.9 Hypothyroidism, unspecified; E78.00 Pure hypercholesterolemia, unspecified; Z99.2 Dependence on renal dialysis; Z91.158 Patient's noncompliance with renal dialysis for other reason; Y83.2 Surgical operation with anastomosis, bypass or graft as the cause of abnormal reaction of the patient, or of later complication, without mention of misadventure at the time of the procedure; Y92.89 Other specified places as the place of occurrence of the external cause
CPT/HCPCS: 36415; 36556; 36905; 71045; 77001; 80048; 80076; 82962; 83036; 83735; 84100; 84443; 85025; 85027; 86705; 86709; 87340; 90935; 93005; 93971; 94640; 99152; 99153; 99285; A4606; C1752; C1766; C1769; C1887; J0612; J0690; J1644; J1815; J2003; J2997; J3010; J7070; Q9967; G0500